=== PATIENT | male | born 1985 | race Caucasian/White ===

== ENCOUNTER 2020-09-05 11:35 | Outpatient (CLI) | payer BC, SELFPAY ==
--- NOTE | ~2020-09-05 | CT_ITS ---
EXAMINATION: CT abdomen pelvis wo con DATE: 09/05/2020 11:47 INDICATION: Right lower quadrant abdominal pain. TECHNIQUE: Computed tomography (CT) of the abdomen and pelvis was performed without intravenous contr ast. Automated exposure control and iterative reconstruction technique were employed. The dose-length product was 1251.27 mGy-cm. COMPARISON: CT abdomen and pelvis 08/19/2018 FINDINGS: The visualized portions of the lung bases are clear without pneumonia or pleural effusion. The heart size is normal. No pericardial effusion. There is a small sliding hiatal hernia. There is d iffuse hepatic steatosis. The gallbladder, spleen, pancreas, adrenal glands, and kidneys are normal. There is no urolithiasis. There is diverticulosis of the colon without evidence of diverticulitis. Th ere are no dilated loops of bowel. The tip of the appendix is bulbous, which is chronic. There are no pathologically enlarged lymph nodes. There is no free intraperitoneal fluid. There are benign bone i slands in proximal right femur. The spine is unremarkable. IMPRESSION: 1. Small sliding hiatal hernia. 2. Diffuse hepatic steatosis. Reviewed, dictated and finalized at location A.
== END 2020-09-05 11:36 | disposition home or self-care (01) ==
PROVIDERS: PCP Family Medicine; Visit Provider Family Medicine
DX: K44.9 Diaphragmatic hernia without obstruction or gangrene (principal); K76.0 Fatty (change of) liver, not elsewhere classified; R10.31 Right lower quadrant pain; K57.30 Diverticulosis of large intestine without perforation or abscess without bleeding
CPT/HCPCS: 74176

== ENCOUNTER 2020-11-11 04:42 | Emergency (ER) | payer BC, SELFPAY ==
[2020-11-11 04:47] VITALS: BP 155/84; PULSE 87; RESP 18; TEMP 36.5; O2SAT 99
--- NOTE | 2020-11-11 04:50 | ECG_ITS ---
Measurements Intervals [place] Rate: 72 P: 15 TN: 159 QRS: -3 QRSD: 105 T: 6 QT: 337 QTc: 371 Interpretive Statements SINUS RHYTHM VOLTAGE CRITERIA FOR LVH BORDERLINE T WAVE ABNORMALITY- INFERIOR LEADS BORDERLINE ECG Electronically Signed On 11-11-2020 6:21:12 CDT by Marty Mcdermott D.O.
--- NOTE | 2020-11-11 05:10 | ED.GENADULT ---
HPI - General Adult General Chief complaint: Unspecified Stated complaint: Sore Throat/CP Time Seen by Provider: 11/11/20 05:07 History of Present Illness HPI narrative: Patient 35-year-old gentleman who presents the emergency department with chief complaint of sore throat. Patient states on he started having discomfort on the right side of his throat. The patient states that it is uncomfortable whenever he swallows states that whenever he takes a deep breath it feels as though his throat is irritated. Patient denies fever denies chills denies sick contacts. Patient reports that he has been vaccinated to COVID-19 Related Data Home Medications Medication Instructions Recorded Confirmed epinephrine 0.3 mg/0.3 mL 0.3 mg IM ONCE 07/05/19 injection, auto-injector Allergies Allergy/AdvReac Type Severity Reaction Status Date / Time shellfish derived Allergy Severe Anaphylactic Verified 11/11/20 04:52 Shock Review of Systems Review of Systems: Narrative: A 10 system review of systems was completed on the patient and is negative except for what is stated in the HPI. Nursing and ancillary documentation was reviewed. PMFSH Past Medical History Medical History GERD (gastroesophageal reflux disease) HLD (hyperlipidemia) HTN (hypertension) TETE (obstructive sleep apnea) Family History Family History Sibling Family history of migraine headaches Father Family history of diabetes mellitus in first degree relative Family history of coronary artery disease Social History Social History Smoking status: Never smoker Second hand tobacco smoke exposure: No Alcohol intake: never Substance use: never Substance use type: does not use Gender identity (if verbalized by the patient): Male Exam Narrative: Exam Narrative: GENERAL: Well-appearing, well-nourished, and in no acute distress. HEAD: Normocephalic, atraumatic. EYES: PERRLA and EOMI. ENT: Nares clear, no rhinorrhea or epistaxis. Mucous membranes moist. NECK: Supple. CHEST: Clear to auscultation. No respiratory distress. HEART: Regular rate and rhythm. No murmur heard. Normal peripheral pulses. ABDOMEN: Soft, nontender, nondistended, normal active bowel sounds. EXTREMITIES: Normal range of motion. No edema. SKIN: Warm, dry, no rash. NEURO: No focal deficits. Alert and oriented x3. PSYCH: Normal mood and affect. Course Vital Signs Vital signs: Vital Signs Temperature 36.5 C 11/11/20 04:47 Pulse Rate 87 11/11/20 04:47 Respiratory Rate 18 11/11/20 04:47 Blood Pressure 155/84 H 11/11/20 04:47 Pulse Oximetry 99 11/11/20 04:47 Temperature 36.5 C 11/11/20 04:47 Pulse Rate 87 11/11/20 04:47 Respiratory Rate 18 11/11/20 04:47 Blood Pressure 155/84 H 11/11/20 04:47 Pulse Oximetry 99 11/11/20 04:47 Medical Decision Making Vital Signs Vital Signs: Vital Signs Temperature 36.5 C 11/11/20 04:47 Pulse Rate 87 11/11/20 04:47 Respiratory Rate 18 11/11/20 04:47 Blood Pressure 155/84 H 11/11/20 04:47 Pulse Oximetry 99 11/11/20 04:47 Temperature 36.5 C 11/11/20 04:47 Pulse Rate 87 11/11/20 04:47 Respiratory Rate 18 11/11/20 04:47 Blood Pressure 155/84 H 11/11/20 04:47 Pulse Oximetry 99 11/11/20 04:47 Lab Data Labs: Strep Screen Presumptive Negative *(Reference Range: Negative)* Discharge Plan Discharge Clinical Impression: Acute viral pharyngitis Patient Disposition: Home, Self-Care Condition: Stable Instructions: Antibiotic Form, Pharyngitis (ED) Prescriptions: New methylprednisolone [Medrol (Casey)] 4 mg tablets,dose pack See Rx Instructions .ROUTE .COMPLEX Qty: 21 RF: 0 No Action epinephrine [
[2020-11-11] MEDS: predniSONE 20 MG TABLET 60 MG PO (05:15)
[2020-11-11 05:41] VITALS: BP 132/84; PULSE 79; RESP 14; O2SAT 99
== END 2020-11-11 05:44 | disposition home or self-care (01) ==
PROVIDERS: Emergency Provider Emergency Medicine; PCP Family Medicine
DX: J06.9 Acute upper respiratory infection, unspecified (principal); B34.9 Viral infection, unspecified; K21.9 Gastro-esophageal reflux disease without esophagitis; I10 Essential (primary) hypertension; E78.5 Hyperlipidemia, unspecified; G47.30 Sleep apnea, unspecified
CPT/HCPCS: 87081; 87880; 93005; 99283; J7512

== ENCOUNTER 2022-03-05 01:45 | Day surgery (SDC) | payer BC, SELFPAY ==
[2022-02-25 14:36] VITALS: BMI 36.4
[2022-03-05 10:33] VITALS: BP 149/88; PULSE 81; RESP 20; TEMP 36.3; O2SAT 100
--- NOTE | 2022-03-05 10:38 | WPDANESEPPF ---
Anes - Initial Pre Proc Eval Procedure: Operation Date: 03/05/22 12:30 Proposed Procedures p Esophagogastroduodenoscopy & Colonoscopy - Ed Bowers MD Date/Time: 03/05/22 10:38 Surgeon: Ed Bowers MD Pre Op Diagnosis: GERD/Blood in stool Patient Data Age: 36 Gender: M Height: 1.75 m Weight: 112.8 kg Last Vital Signs Temp 36.3 C L 03/05/22 10:33 Pulse 81 03/05/22 10:33 Resp 20 03/05/22 10:33 BP 149/88 H 03/05/22 10:33 Pulse Ox 100 03/05/22 10:33 O2 Del Method Room Air 03/05/22 10:33 Allergies Allergy/AdvReac Type Severity Reaction Status Date / Time shellfish derived Allergy Severe Anaphylactic Verified 03/05/22 10:31 Shock Home Medications Medication Instructions Recorded Confirmed Type epinephrine 0.3 mg/0.3 mL 0.3 mg IM ONCE 07/05/19 02/25/22 History injection, auto-injector (EpiPen 2-Casey) rosuvastatin 5 mg tablet (Crestor) 5 mg PO DAILY #90 tabs 04/23/21 02/25/22 Rx valsartan 40 mg tablet 40 mg PO DAILY #90 tabs 04/23/21 02/25/22 Rx albuterol sulfate 90 mcg/actuation 1 - 2 inh inhalation Q4H PRN 07/15/21 02/25/22 Rx aerosol inhaler (ProAir HFA) shortness of breath or wheezing #8.5 grams metoprolol succinate 25 mg 25 mg PO DAILY #90 tabs 08/22/21 02/25/22 Rx tablet,extended release 24 hr (Toprol XL) omeprazole 40 mg capsule,delayed 40 mg PO DAILY #90 caps 01/30/22 02/25/22 Rx release Patient hx anesthesia problems: none Family hx anesthesia problems: none Results Review: All pre-operative results and documents have been reviewed as part of the pre-operative evaluation. [facility] Past Medical History Medical History (Updated 02/20/22 @ 10:10 by Ed Bowers MD) Elevated transaminase level GERD (gastroesophageal reflux disease) HLD (hyperlipidemia) HTN (hypertension) Obesity TETE (obstructive sleep apnea) Family History Family History Sibling Family history of migraine headaches Father Family history of diabetes mellitus in first degree relative Family history of coronary artery disease Social History Social History Smoking status: Never smoker Second hand tobacco smoke exposure: No Alcohol intake: never Substance use: never Substance use type: does not use Living arrangements: with family Gender identity (if verbalized by the patient): Male Sexual Orientation (if Verbalized by the Patient): Straight or Heterosexual Spiritual care concerns: No Anes - Eval Final PreProcedure Day of Procedure 03/05/22 10:38 Patient weight: obese Heart: regular rate and rhythm Lungs: clear to auscultation Airway: Mallampati scale class II Neurological: alert and oriented Last oral intake: >/= 8 hours ASA classification: III Emergent: no Anesthetic plan: proceed Anesthesia type and monitoring: general GIVS and standard monitoring Results Review: All pre-operative results and documents have been reviewed as part of the pre-operative evaluation. Informed Consent: The patient's anesthetic plan and its attendant risks and benefits were discussed with the patient/family/POA. Questions were solicited and answers provided to the satisfaction of the patient/family/POA.
[2022-03-05] MEDS: LACTATED RINGERS 1,000 ML 150 ML IV CONT (10:44)
--- NOTE | 2022-03-05 11:43 | WPDHPUPDATE1 ---
History and Physical Update Update Date/Time: 03/05/22 11:43 History and Physical has been reviewed, including an updated exam of the patient. There are NO changes in the patient's condition. Risks, benefits, and alternatives have been discussed and questions answered. Patient agrees to proceed with procedure.
[2022-03-05] MEDS: BENZOCAINE (*SP) 60 ML SPRAY CAN (HURRICAINE) 1 SPRAY MUCOUS MEM (11:50)
--- NOTE | 2022-03-05 11:57 | SUR.OPER ---
EGD: [id number] COLON: [id number]
[2022-03-05 12:09] VITALS: BP 114/75; PULSE 91; RESP 24; O2SAT 96
[2022-03-05 12:19] VITALS: BP 129/81; PULSE 76; RESP 18; O2SAT 97
== END 2022-03-05 12:41 | disposition home or self-care (01) ==
PROVIDERS: PCP Family Medicine; Visit Provider Internal Medicine Gastroenterology
PROC: 0DJ08ZZ Inspection of Upper Intestinal Tract, Via Natural or Artificial Opening Endoscopic (ICD-10-PCS; CPT 43235; principal; 2022-03-05 12:30)
DX: K92.1 Melena (principal); D12.0 Benign neoplasm of cecum; K64.8 Other hemorrhoids; R53.83 Other fatigue; K21.00 Gastro-esophageal reflux disease with esophagitis, without bleeding; G47.33 Obstructive sleep apnea (adult) (pediatric); I10 Essential (primary) hypertension; E78.5 Hyperlipidemia, unspecified; R74.01 Elevation of levels of liver transaminase levels; Z79.51 Long term (current) use of inhaled steroids; K76.0 Fatty (change of) liver, not elsewhere classified; E66.9 Obesity, unspecified; Z68.36 Body mass index [BMI] 36.0-36.9, adult
CPT/HCPCS: 45385; 43239; 88305; J2704; J7120

== ENCOUNTER 2022-07-17 16:12 | Emergency (ER) | payer BC, SELFPAY ==
[2022-07-17 16:14] VITALS: BP 170/95; PULSE 79; RESP 17; TEMP 36.7; O2SAT 100
--- NOTE | 2022-07-17 18:45 | PC.NURSE ---
Patient up to triage desk to notify this RN that he no longer wants to wait to be seen. Patient encouraged to stay but he declined.
== END 2022-07-17 19:15 | disposition left against medical advice (07) ==
PROVIDERS: PCP Family Medicine
DX: S05.91XA Unspecified injury of right eye and orbit, initial encounter (principal); W22.8XXA Striking against or struck by other objects, initial encounter
CPT/HCPCS: 99199

== ENCOUNTER 2025-04-12 08:46 | Outpatient (CLI) | payer BC, SELFPAY ==
--- NOTE | 2025-04-12 09:00 | NEURO_ITS ---
Impression: # Non-diabetic complains of numbness of hands. ? # Subtle evolving Carpal Tunnel Syndrome (sensory). ? # Evolving Ulnar Neuropathy across the elbow. ? # Normal Needle/ EMG exam. Nerve Conduction Studies ?Stim Site NR Peak (ms) P-T Amp (?V) Site1 Site2 Delta-P (ms) Dist (cm) Nick (m/s) Left Median Anti Sensory (2-3nd Digit) Wrist ? 3.8 11.1 Wrist 2-3nd Digit 3.8 14.0 37 Wrist ? 3.7 15.2 Wrist 2-3nd Digit 3.8 14.0 37 Right Median Anti Sensory (2-3nd Digit) Wrist ? 3.9 14.7 Wrist 2-3nd Digit 3.9 14.0 36 Wrist ? 4.2 20.4 Wrist 2-3nd Digit 3.9 14.0 36 Left Radial Anti Sensory (Base 1st Digit) Wrist ? 1.9 28.7 Wrist Base 1st Digit 1.9 0.0 Right Radial Anti Sensory (Base 1st Digit) Wrist ? 2.1 22.2 Wrist Base 1st Digit 2.1 0.0 Left Ulnar Anti Sensory (5th Digit) Wrist ? 2.3 43.2 Wrist 5th Digit 2.3 14.0 61 Right Ulnar Anti Sensory (5th Digit) Wrist ? 2.2 42.6 Wrist 5th Digit 2.2 14.0 64 ?Stim Site NR Onset (ms) O-P Amp (mV) Site1 Site2 Delta-0 (ms) Dist (cm) Nick (m/s) Left Median Motor (Abd Poll Brev) Wrist ? 4.1 5.7 Elbow Wrist 5.5 29.0 53 Elbow ? 9.6 8.5 Right Median Motor (Abd Poll Brev) Wrist ? 4.2 4.7 Elbow Wrist 5.5 30.0 55 Elbow ? 9.7 4.2 Left Ulnar Motor (Abd Dig Minimi) Wrist ? 2.9 4.8 A Elbow Wrist 6.1 31.0 51 A Elbow ? 9.0 3.9 B Elbow Wrist 4.4 24.0 55 B Elbow ? 7.3 3.8 Right Ulnar Motor (Abd Dig Minimi) Wrist ? 3.0 7.1 A Elbow Wrist 5.8 30.0 52 A Elbow ? 8.8 6.5 B Elbow Wrist 4.1 23.0 56 B Elbow ? 7.1 5.5 F Wave Studies ?NR F-Lat (ms) L-R F-Lat (ms) Left Median (Mrkrs) (Abd Poll Brev) ? 29.63 0.72 Right Median (Mrkrs) (Abd Poll Brev) ? 30.35 0.72 Left Ulnar (Mrkrs) (Abd Dig Min) ? 29.73 1.06 Right Ulnar (Mrkrs) (Abd Dig Min) ? 28.67 1.06 Electromyography ?Side Muscle Nerve Root Ins Act Fibs Amp Dur Recrt Comment Right 1stDorInt Ulnar C8-T1 Nml Nml Nml Nml Nml Right Ext Indicis Radial (Post Int) C7-8 Nml Nml Nml Nml Nml Right Ext Digitorum Radial (Post Int) C7-8 Nml Nml Nml Nml Nml Right BrachioRad Radial C5-6 Nml Nml Nml Nml Nml Right PronatorTeres Median C6-7 Nml Nml Nml Nml Nml Right Abd Poll Brev Median C8-T1 Nml Nml Nml Nml Nml Right ABD Dig Min Ulnar C8-T1 Nml Nml Nml Nml Nml Right FlexPolLong Median (Ant Int) C7-8 Nml Nml Nml Nml Nml Right Abd Poll Long Radial (Post Int) C7-8 Nml Nml Nml Nml Nml Left 1stDorInt Ulnar C8-T1 Nml Nml Nml Nml Nml Left Ext Indicis Radial (Post Int) C7-8 Nml Nml Nml Nml Nml Left Ext Digitorum Radial (Post Int) C7-8 Nml Nml Nml Nml Nml Left BrachioRad Radial C5-6 Nml Nml Nml Nml Nml Left PronatorTeres Median C6-7 Nml Nml Nml Nml Nml Left Abd Poll Brev Median C8-T1 Nml Nml Nml Nml Nml Left ABD Dig Min Ulnar C8-T1 Nml Nml Nml Nml Nml Left FlexPolLong Median (Ant Int) C7-8 Nml Nml Nml Nml Nml Left Abd Poll Long Radial (Post Int) C7-8 Nml Nml Nml Nml Nml
--- OUTSIDE RECORDS SUMMARY | 2025-04-12 09:11 | XMS_ITS | Clinical Summary ---
Author Organization [facility] Address [address] [place] [address] Care Team Providers Care Union Organiser Name Role Phone Anthony Sanchez MD Primary Care Provider Allergies No known active allergies Medications naproxen (NAPROSYN) 500 mg tablet Take 1 tablet (500 mg total) by mouth 2 (two) times a day with meals Take as directed to reduce pain and swelling. Collaborating physician Nikolay Jones MD 30 tablet 3 Active Additional Information Patient not taking.Reported on 01/04/2025 acetaminophen- codeine (TYLENOL with CODEINE #3) 300-30 mg per tablet Take 1 tablet by mouth every 6 (six) hours as needed for pain P.r.n. pain not relieved by naproxen alone. Take with food. Collaborating physician Nikolay Jones MD 15 tablet 3 Active Additional Information Patient not taking.Reported on 01/04/2025 HYDROcodone-ac etaminophen (NORCO) 5-325 mg per tabletIndicati ons:Pain Take 1 tablet by mouth every 6 (six) hours as needed for pain 10 tablet 4 Active Additional Information Patient not taking.Reported on 01/04/2025 omeprazole (PriLOSEC) 40 mg capsule Take 1 capsule (40 mg total) by mouth daily Active metoprolol XL (TOPROL-XL) 25 mg extended release tablet Take 1 tablet (25 mg total) by mouth daily Active rosuvastatin (CRESTOR) 5 mg tablet Take 1 tablet (5 mg total) by mouth daily Active valsartan (DIOVAN) 40 mg tablet Take 1 tablet (40 mg total) by mouth daily Active Active Problems Problem Noted Date Diagnosed Date Closed displaced avulsion fracture of right talu s 10/30/2022 Social History Tobacco Use Types Packs/Day Years Used Date Smoking Tobacco: Never Assessed Personal Safety Answer Date Recorded Have you ever been in or are you currently in a harmful physical or emotional relationship or is someone making you feel afraid or unsafe? Denies 12/02/2023 Sex and Gender Information Value Date Recorded Sex Assigned at Not on file Legal Sex Male 6:14 PM CDT Gender Identity Not on file Sexual Orientation Not on file Last Filed Vital Signs Vital Sign Reading Time Taken Comments Blood Pressure 132/76 01/04/2025 8:17 AM CDT Pulse 88 01/04/2025 8:17 AM CDT Temperature 36.1 C (97 F) 01/04/2025 8:17 AM CDT Respiratory Rate 18 01/04/2025 8:17 AM CDT Oxygen Saturation 98% 01/04/2025 8:17 AM CDT Inhaled Oxygen Concentration - - Weight 117 kg (258 lb) 01/04/2025 8:17 AM CDT Height 175.3 cm (5' 9) 01/04/2025 8:17 AM CDT Body Mass Index 38.1 01/04/2025 8:17 AM CDT Plan of Treatment Health Maintenance Due Date Last Done Comments Depression Screening 1985 Hepatitis C Screening 1985 DTaP/Tdap/Td Vaccine (1 - Tdap) 1996 Varicella Vaccines (1 of 2 - 13+ 2-dose series) 1998 Hepatitis B Screening 2003 Regular Well Visit/Exam 18-64 2003 HPV Vaccines (1 - 3-dose SCD M series) 2012 Covid-19 Vaccine (2 - 2024-2 6 season) 2025 08/07/2020 Influenza Vaccine (#1) 2025 Pneumococcal vaccine <65 Aged Out No longer eligible based on patient's age to complete this topic Insurance [facility] Care Teams Union Organiser Relationship Specialty Start Date End Date Anthony Sanchez MD [address] [facility] [address] [place] [address] PCP - General Family Medicine 10/30/22
--- OUTSIDE RECORDS SUMMARY | 2025-04-12 09:11 | XMS_ITS | Clinical Summary ---
Author Organization [facility] Address [address] [place] [address] Care Team Providers Care Starch Cooker Name Role Phone Anthony Sanchez MD Primary Care Provider [phone] Source Comments [facility],non-[facility] Affiliates and Associated Physician Practices is amultiple site organization consisting of ambulatory clinics and hospital sitesin [place], [place], [place] and [place]. This disclosure is being madepursuant to the Care Everywhere program and may not contain all information available regarding this patient. Last updated 18.[facility] [employer] Active Problems Problem Noted Date Diagnosed Date Other specified abnormal findings of blood chemi stry 07/06/2012 Family History Medical History Relation Name Comments None Known Brother Status: Alive None Known Father Status: Alive None Known Mother Status: Alive None Known Sister Status: Alive Relation Name Status Comments Brother Father Mother Sister Social History Tobacco Use Types Packs/Day Years Used Date Smoking Tobacco: Never Smokeless Tobacco: Never Alcohol Use Standard Drinks/Week Comments Not Asked 0 (1 standard drink = 0.6 oz pur e alcohol) Sex and Gender Information Value Date Recorded Sex Assigned at Not on file Legal Sex Male 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 Gender Identity Not on file Sexual Orientation Not on file Last Filed Vital Signs Vital Sign Reading Time Taken Comments Blood Pressure 144/78 09/15/2012 10:39 AM CDT Pulse 78 09/15/2012 10:39 AM CDT Temperature 36.8 C (98.2 F) 09/15/2012 10:39 AM CDT Respiratory Rate 20 09/15/2012 10:3 9 AM CDT Oxygen Saturation - - Inhaled Oxygen Concentration - - Weight 93.4 kg (205 lb 12.8 oz) 013 10:39 AM CDT Height 182.9 cm (6') 09/15/2012 10:39 AM CDT Body Mass Index 27.91 09/15/2012 10:39 AM CDT Plan of Treatment Health Maintenance Due Date Last Done Comments LIPID TESTING 1985 HIV SCREENING 2000 HEPATITIS C SCREENING 03/11/2003 DTAP/TDAP/TD VACCINES (1 - Tdap) 2004 HEPATITIS B VACCINE (1 of 3 - 19+ 3-dose series) 2004 HPV VACCINE (1 - 3-dose SCDM series) 2012 DEPRESSION SCREENING 06/01/2024 COVID-19 VACCINE (1 - 2023-2 5 season) 2025 INFLUENZA VACCINE (#1) 2025 ZOSTER VACCINE (1 of 2) 2035 HIB VACCINE Aged Out No longer eligi ble based on patient's age to complete this topic MENINGOCOCCAL (Group B) VACC INE SHARED DECISION-MAKING Aged Out No longer eligibl e based on patient's age to complete this topic MENINGOCOCCAL GROUPS A/C/Y/W VACCINE Aged Out No longer eligible b ased on patient's age to complete this topic PNEUMOCOCCAL VACCINE Aged Out No long er eligible based on patient's age to complete this topic Insurance [facility] Care Teams Starch Cooker Relationship Specialty Start Date End Date Anthony Sanchez MD [address] [place] [address] [facility] - General 03/10/12
== END 2025-04-12 08:47 | disposition home or self-care (01) ==
PROVIDERS: PCP Family Medicine; Visit Provider Family Medicine
DX: G56.03 Carpal tunnel syndrome, bilateral upper limbs (principal); G56.23 Lesion of ulnar nerve, bilateral upper limbs; R20.0 Anesthesia of skin
CPT/HCPCS: 95886; 95911